=== PATIENT | female | born 1990 | race Caucasian/White ===

== ENCOUNTER 2020-08-24 06:45 | Day surgery (SDC) | payer MEDICAID ==
[2020-08-21 12:51] LABS: UDS - AMPHET NEGATIVE QUAL (NEGATIVE); UDS - BARB NEGATIVE QUAL (NEGATIVE); UDS - BENZO NEGATIVE QUAL (NEGATIVE); UDS - COCAINE NEGATIVE QUAL (NEGATIVE); UDS - OPIATE NEGATIVE QUAL (NEGATIVE); UDS - PCP NEGATIVE QUAL (NEGATIVE); UDS - THC NEGATIVE QUAL (NEGATIVE)
[2020-08-21 12:52] LABS: BASOPHILS 0.2 % (0-2); CALC OSMOLALITY 275 mosm/kg (275-300); CARBON DIOXIDE 26.1 mmol/L (21.0-32.0); CHLORIDE - SERUM 104 mmol/L (98-107); CREATININE - SERUM 0.8 mg/dL (0.6-1.3); EOSINOPHILS 0.8 % (0-7); GLUCOSE 83 mg/dL (74-106); HEMATOCRIT 40.4 % (36.0-48.0); HEMOGLOBIN 13.6 g/dL (12-16); IMMATURE GRANULOCYTES 0.2 % (0-5); LYMPHOCYTES 23.9 % (15-50); MCH 31.4 pg (26.0-34.0); MCHC 33.7 g/dL (31.0-37.0); MCV 93.3 fL (80.0-100.0); MEAN PLATELET VOLUME 10.7 fL (7.4-10.4); MONOCYTES 6.1 % (2-11); NEUTROPHILS 68.8 % (40-80); PLATELET COUNT 248 10x3/uL (130-400); POTASSIUM - SERUM 3.5 mmol/L (3.5-5.1); RBC 4.33 10x6/uL (4.00-5.40); RDW 12.3 % (11.5-14.5); SODIUM 139 mmol/L (136-145); UREA NITROGEN 9 mg/dL (7-18); eGFR NON AFRICAN AMERICAN 88 mL/min (90-120)
[2020-08-24] VITALS (8 sets, daily range): BP systolic 100–124; BP diastolic 54–76; Ht 170.2 cm; Wt 68.0 kg
[~2020-08-24] VITALS: Ht 170.2 cm; Wt 68.0 kg
--- NOTE | ~2020-08-24 | OP ---
PATIENT NAME: ERICK BOOKER MEDICAL RECORD: [id number] :86 LOCATION:[facility] ADMISSION DATE: SURGEON: TON YANCEY MD DATE OF OPERATION: 08/24/2020 PREOPERATIVE DIAGNOSES: 1. Pelvic pain. 2. Dysmenorrhea. POSTOPERATIVE DIAGNOSES: 1. Pelvic pain. 2. Dysmenorrhea. PROCEDURE PERFORMED: 1. Diagnostic laparoscopy. 2. Total laparoscopic hysterectomy. 3. Bilateral salpingectomy. 4. Cystoscopy. SURGEON: Ton Yancey MD ANESTHESIOLOGIST: Dr. Brewer. ANESTHETIC: General. FINDINGS: Unremarkable uterus and ovaries. The tubes were interrupted bilaterally. What was visualized of the abdominal anatomy was unremarkable. Bladder mucosa and ureteral orifices also noted to be unremarkable. Good efflux of urine. SPECIMENS REMOVED: Uterus with cervix, bilateral tubes. SPECIMEN DISPOSITION: All specimens to pathology. ESTIMATED BLOOD LOSS: Minimal. URINE OUTPUT: 100 cc of clear urine. FLUIDS: 1 liter of Lactated Ringer's. COMPLICATIONS: None. DRAIN: Barnes to gravity. INDICATIONS: The patient is a 30-year-old female with dysmenorrhea that negatively impacts quality of life. The patient has tried conservative management without relief of symptoms. The patient desires more aggressive management. Risks, benefits and limitations have been described. DESCRIPTION OF PROCEDURE: After informed consent was ensured, the patient was taken to the operating room where anesthetic was obtained. The patient was placed in Mauri stirrups and prepped and draped. A uterine manipulator was placed and an incision was now made at the umbilicus to accommodate a 5-mm trocar, which was inserted without difficulty. Pneumoperitoneum was developed. With the patient in Trendelenburg position, accessory ports were placed in the OPERATIVE REPORT [id number] ERICK BOOKER right and left lower quadrant. Through the right lower quadrant port, a blunt probe was inserted and the bowel swept free of the pelvis. Left tube was elevated and using a Thunderbeat coagulation cutter from the left side, the tissues compressed, coagulated, and underneath the tube. This dissection was carried out along the mesosalpinx, across the uteroovarian and round ligaments. The anterior leaf of the broad ligament was opened and the bladder flap developed to the midline. Posteriorly, the tissue was dissected free of the vascular bundle of the left side, which was compressed, coagulated, and now . Attention was now directed to the right side. From the left, the right tube was elevated. Using a Thunderbeat coagulation cutter, the tube was freed from its attachments to the adnexa. Uterine ovarian ligament was compressed, coagulated, and followed by the round ligament. Anterior leaf of the broad ligament was opened and the bladder flap now fully developed. Posteriorly, the tissue was dissected free of the vascular bundle of the right. The bundle was now compressed, coagulated, and . Using a laparoscopic peanut, the bladder was further dissected down from the cervix and the uterine manipulator cup was identified. Using the Thunderbeat coagulation cutter starting at the 3 o'clock position and concluding at the 6 o'clock position, the cup was entered. This dissection was carried out from the [address] to the 12 o'clock position from the left continuing from the right side to the 12 to 3. The uterus was now pulled into the vagina. Pneumoperitoneum was maintained. The pelvis was irrigated, irrigant removed. Adequate hemostasis has been achieved. The patient was now positioned for the close. With the legs elevated and the light was on standby and the uterus removed. The cuff was identified and closed with a running stitch of Vicryl. Care was taken to reapproximate the uterosacral ligaments and incorporate this into the cuff close ensuring apical support. After cuff closure was complete, pneumoperitoneum was reestablished for a second look and again hemostasis was noted. Pneumoperitoneum was released as assistant manager/embalmer closes the port sites. Cystoscopy was now performed showing no injury to bladder mucosa. Both ureteral orifices have good efflux of urine. Sponge, lap, and needle counts correct times 2. The patient was awakened and went to the recovery area in stable condition. TRANSINT:[id number] Voice Confirmation ID: [id number] DOCUMENT ID: [id number] TON YANCEY MD CC: [id number] DICTATION DATE: 09/02/20806 C[employer]ILRO[employer] CAR LOADER: 09/02/20906 [facility] 08/24/20 [facility] [address] [place] [address]
[2020-08-24 10:33] LABS: HCG URINE NEGATIVE (NEGATIVE)
--- NOTE | 2020-08-24 13:16 | NUR ---
PT RECEIVED FROM RECOVERY. ALERT AND ORIENTED. PT DENIES PAIN. LR INFUSING ORDERED TO RIGHT HAND PIV. 3 ABD LAP INCISIONS C/D/I. DESHPANDE CATH DRAINING CLEAR YELLOW URINE TO BEDSIDE DRAINAGE. STAT LOCK TO INNER RT THIGH. SCDS PLACED ON PT. ICE WATER PROVIDED. PT DENIES NEEDS AT THIS TIME. CALL LIGHT IN REACH SRUPX2.
--- NOTE | 2020-08-24 14:00 | NUR ---
FULL SHIFT ASSESSMENT COMPLETED, SEE FLOWSHEET. VSS. PT CONTINUES TO DENY PAIN OR ANY NAUSEA. 90 MLS CLEAR YELLOW URINE EMPTIED FROM UROMETER. PT DENIES NEEDS. SRUPX2 CALL LIGHT IN REACH.
--- NOTE | 2020-08-24 15:15 | NUR ---
THIS RN TO ROOM FOR PT CHECK. PT RESTING WITH EYES CLOSED, RESP EVEN AND UNLABORED. PT ALERTS THIS RN ENTERS ROOM. PT CONTINUES TO DENY PAIN AND NAUSEA, REQUESTS SALTINE CRACKERS TO SNACK ON. PT PROVIDED WITH CRACKERS REQUESTED. 35ML DARK YELLOW URINE EMPTIED FROM UROMETER. PT ENCOURAGED TO DRINK TOLERATED AND REPORT ANY NAUSEA. PT VERBALIZES UNDERSTANDING. PT POSITIONED TO SITTING TO EAT CRACKERS AND SIT WATER. DENIES NEEDS. SRUx2, CL IN REACH.
--- NOTE | 2020-08-24 16:15 | NUR ---
PT AWAKE.CONTINUES TO DENY PAIN. REPORTS TOLERATING CRACKERS AND SIPS OF WATER. POC DISCUSSED, PT VERBALIZES WANTING TO GO HOME THIS EVENING. DC CRITERIA DISCUSSED TOLERATING PO FOODS/FLUIDS AND VOIDING. PT VERBALIZES UNDERSTANDING. SPRITE PROVIDED PER REQUEST. 15 MLS OF DARK COLORED URINE EMPTIED FROM UROMETER. PT ENCOURAGED TO DRINK TOLERATED. SRUPX2, CALL LIGHT IN REACH. SIGNIFICANT OTHER AT BEDSIDE. PAVAN CHAWLA INCREASES FLUID RATE TO 500ML/H PER LOW URINE OUTPUT.
--- NOTE | 2020-08-24 16:45 | NUR ---
JERAMY DC'D. 6O MLS CLEAR YELLOW URINE NOTED IN UROMETER. INCENTIVE SPIROMETER TEACHING DONE. PT INSTRUCTED ON USING PILLOW TO BRACE ABD FOR COUGH. PT ASSISTED TO SIT UP WITH DINNER TRAY. INST TO CALL WHEN SHE HAS THE URGE TO VOID. SRUPX2, CALL LIGHT IN REACH. WILL CONTINUE TO MONITOR.
--- NOTE | 2020-08-24 17:20 | NUR ---
PT CALLS OUT WITH URGE TO VOID. IV SALINE LOCKED. PT UP TO BR. AMBULATORY WITH MINIMAL ASSIST. PT UNABLE TO VOID. BACK TO BED WITHOUT ASSIST, STEADY GAIT. PT REPORTS VOMITING CLEAR FLUID, 300 MLS NOTED IN BAG. DENIES NEED FOR NAUSEA OR PAIN MED. PT ENCOURAGED TO SIP SPRITE SLOWLY AND WILL TRY TO VOID AGAIN SHORTLY. SIGNIFICANT OTHER IN ROOM WITH PT. INSTRUCTED TO CALL FOR ASSIST TO BR IF NEEDED. SRUPX2, CALL LIGHT WITHIN REACH.
--- NOTE | 2020-08-24 17:58 | NUR ---
PT REQUESTS MEDICATION FOR NAUSEA. PT REPORTS THROWING UP. 200 MLS CLEAR EMESIS NOTED. NAUSEA MEDICATION ADMINISTERED SEE EMAR. PT DENIES FURTHER NEEDS. SRUPX2, CALL LIGHT WITHIN REACH.
--- NOTE | 2020-08-24 18:47 | NUR ---
RN CALLED TO ROOM, PT STATES SHE WAS ABLE TO VOID, 150ML OF CLEAR YELLOW URINE IN URINE HAT AT THIS TIME.
--- NOTE | 2020-08-24 19:28 | NUR ---
PT TO POV VIA WHEELCHAIR ESCORTED BY RN. PT SIGNIFICANT OTHER AT PT SIDE, D/C INSTRUCTIONS AND PRESCRIPTIONS IN HAND.
== END 2020-08-24 19:28 | disposition home or self-care (01) ==
LOC: D.OPS 06:45 → D.PAN 09:30 → D.LD 12:58 → D.OPS 19:28
PROVIDERS: ATTEND Obstetrics & Gynecology
DX: R10.2 Pelvic and perineal pain (principal); N94.5 Secondary dysmenorrhea; Z01.419 Encounter for gynecological examination (general) (routine) without abnormal findings; N92.0 Excessive and frequent menstruation with regular cycle